=== PATIENT | female | born 1980 | race Native Hawaiian/Other Pacific Islander ===

== ENCOUNTER 2016-06-01 13:58 | Outpatient (CLI) | payer OTHER ==
[~2016-06-01 13:58] MED LIST: ADIPEX PO; AXERT12.5 MG OR; CHLOSUS43 PO; CYAN10009 IM; FLUT0.05 NAS; LEVO500T PO; MEDROL DOSEPAK4 MG OR; TOPAMAX50 MG OR; VALTREX500 MG PO
== END 2016-06-01 19:16 | disposition home or self-care (01) ==
LOC: MAMMO 13:58
DX: Z12.31 Encounter for screening mammogram for malignant neoplasm of breast (principal)
CPT/HCPCS: G0202-TC

== ENCOUNTER 2017-11-09 15:57 | Outpatient (CLI) | payer BC | END 2017-11-09 19:34 | disposition home or self-care (01) | LOC: MAMMO 15:57 | DX: Z12.31 Encounter for screening mammogram for malignant neoplasm of breast (principal) ==

== ENCOUNTER 2017-12-04 09:06 | Outpatient (CLI) | payer BC | END 2017-12-04 19:43 | disposition home or self-care (01) | LOC: MAMMO 09:06 | DX: R92.8 Other abnormal and inconclusive findings on diagnostic imaging of breast (principal) ==

== ENCOUNTER 2020-09-24 11:34 | Outpatient (CLI) | payer BC ==
[2020-09-24 11:56] LABS: PLATELET COUNT 160 K/uL (152-353)
[2020-09-24 12:10] LABS: POTASSIUM 3.7 mmol/L (3.6-5.2)
[2020-09-25] MEDS ORDERED: ALLEGRA ALRG180 M1 PO ×2 (17:57)
[2020-09-25] MEDS ORDERED: AMOX875T8 PO ×2 (17:58)
== END 2020-09-24 19:48 | disposition home or self-care (01) ==
LOC: LABW 11:34
PROVIDERS: ATTEND Internal Medicine
DX: R50.9 Fever, unspecified (principal)
CPT/HCPCS: 36415; 80053; 81000; 85027; 85652

== ENCOUNTER 2020-09-25 10:15 | Observation (INO) | payer BC ==
[~2020-09-25] VITALS: Ht 157.5 cm; Wt 67.8 kg
--- NOTE | 2020-09-25 11:20 | NUR ---
PATIENT CAME IN AMBULATORY DIRECT ADMIT FROM 'S OFFICE. ADMISSION ASSESSMENT COMPLETED. IV 20G TO THE LEFT FOREARM X1 ATTEMPT STARTED AT THIS TIME.
[2020-09-25 12:00] VITALS: BP 118/72; TEMP 98.4
--- NOTE | 2020-09-25 12:25 | NUR ---
IN THE ROOM ROUNDING ON THE PATIENT.
[2020-09-25 12:48] LABS: PLATELET COUNT 157 K/uL (152-353)
[2020-09-25 13:05] LABS: POTASSIUM 3.5 mmol/L (3.6-5.2)
[2020-09-25 16:00] VITALS: BP 114/70; TEMP 98.4
[2020-09-25] MEDS ORDERED: ALLEGRA ALRG180 M1 PO ×2 (17:57)
[2020-09-25] MEDS ORDERED: AMOX875T8 PO ×2 (17:58)
--- NOTE | 2020-09-25 18:00 | NUR ---
URINE SAMPLE COLLECTED AND SENT TO THE LAB.
[2020-09-25 19:19] VITALS: BP 118/72; TEMP 98.4; Ht 157.5 cm; Wt 67.8 kg
[2020-09-25 20:13] VITALS: BP 110/65; TEMP 98.6
[2020-09-26 00:13] VITALS: BP 115/64; TEMP 98.7
--- NOTE | 2020-09-26 03:55 | NUR ---
09/25/20 @ 1915 Rec'd pt resting in bed alert and oriented resting in bed. Denies c/o at this time. IV patent and infusing NS @ 75 to LFA without difficulty. 2100 Pt started on Amoxicillin 875 as ordered. Snacks offered and given pudding, jello, and apple sauce. 2330 Pt resting in bed with eyes closed but arouses easily. Denies c/o at this time. No temp noted thus far this shift. No adverse reaction noted to ABT.
[2020-09-26 04:00] VITALS: BP 102/64; TEMP 98.4
--- NOTE | 2020-09-26 04:13 | NUR ---
0250 Pt called and requested her temp be taken stated she woke up in a sweat. Oral temp 98.5. Denies c/o pain/discomfort. 0330 Pt resting with no further c/o. States "I'm fine now. Just a little chilled."
--- NOTE | 2020-09-26 05:15 | NUR ---
PT RESTING WITH EYES CLOSED AT THIS TIME. NO FURHTER C/O VOICED AT THIS TIME. CALL LIGHT IN EASY REACH.
[2020-09-26 08:00] VITALS: BP 113/72; TEMP 98.3
--- NOTE | 2020-09-26 11:50 | NUR ---
PT IV DC'D AT THIS TIME. TIP INTACT NO REDNESS OR SWELLING NOTED. PT GIVEN DISCHARGE INSTRUCTIONS AT THIS TIME TO TAKE OVER THE COUNTER NAPROXEN DIRECTED TWO TIMES A DAY FOR COMFORT AND INFLAMMATION. KEEP A LOG OF FEVERS AND ANY WORSENING SYMPTOMS. FOLLOW UP WITH DR. FORTE IN 7-10 DAYS AND NEEDED. F/U WITH DR. PACHECO OR DR. FORTE IF YOU DECIDE TO F/U WITH SPECIALIST/INFECTIOUS DISEASE DOCTOR. PT VERBALIZES UNDERSTANDING DENIES ANY QUESTIONS OR C/O AT THIS TIME. PT DC'D VIA AMBULATORY.
== END 2020-09-26 15:29 | disposition home or self-care (01) ==
LOC: MED/SURG 10:15
PROVIDERS: ADMIT Internal Medicine; ATTEND Internal Medicine
DX: R50.9 Fever, unspecified (principal); G43.809 Other migraine, not intractable, without status migrainosus
CPT/HCPCS: 80053; 80074; 81000; 82728; 85027; 85652; 86038; 86140; 86308; 87040; 87081; 87635; 99220; G0378; G0379; J1956; Q9963; U0003

== ENCOUNTER 2021-07-09 09:05 | Outpatient (CLI) | payer BC ==
[~2021-07-09 09:05] MED LIST changes: +ALLEGRA ALRG180 M1 PO; +AMOX875T8 PO
== END 2021-07-09 20:26 | disposition home or self-care (01) ==
LOC: MAMMO 09:05
PROVIDERS: ATTEND Obstetrics & Gynecology
DX: Z12.31 Encounter for screening mammogram for malignant neoplasm of breast (principal)